=== PATIENT | female | born 1970 | race Caucasian/White ===

== ENCOUNTER 2017-03-23 15:49 | Emergency (ER) | payer BC ==
[~2017-03-23] VITALS: Ht 157.5 cm; Wt 99.8 kg
[2017-03-23] MEDS ORDERED: IBUPROFEN 600600 M1 PO (16:16)
[2017-03-23] MEDS ORDERED: KEFLEX500 M1 PO (16:16)
== END 2017-03-23 16:45 | disposition home or self-care (01) ==
LOC: ER 15:49
DX: S51.812A Laceration without foreign body of left forearm, initial encounter (principal); W45.8XXA Other foreign body or object entering through skin, initial encounter; Y93.89 Activity, other specified; Y92.89 Other specified places as the place of occurrence of the external cause; Y99.8 Other external cause status

== ENCOUNTER 2018-12-26 22:32 | Emergency (ER) | payer OTHER ==
[~2018-12-26] VITALS: Ht 154.9 cm; Wt 83.5 kg
[~2018-12-26 22:32] MED LIST: IBUPROFEN 600600 M1 PO; KEFLEX500 M1 PO
[2018-12-26] MEDS ORDERED: PROTONIX40 M1 PO (23:10)
[2018-12-26] MEDS ORDERED: ADDERALL 10 MG10 MG PO (23:10)
[2018-12-26] MEDS ORDERED: HYOSCYAMINE0.125 MG PO (23:11)
[2018-12-26] MEDS ORDERED: EFFEXOR XR150 MG PO (23:11)
[2018-12-26] MEDS ORDERED: NEURONTIN 300M300 M2 PO (23:12)
[2018-12-26] MEDS ORDERED: AMITRIPTYLINE H25 M3 PO (23:13)
[2018-12-26] MEDS ORDERED: SPIRONOLACTONE100 M1 PO (23:14)
[2018-12-26] MEDS ORDERED: ONDANSETRON HCL4 M2 PO (23:14)
[2018-12-26] MEDS ORDERED: PROAIR HFA8.5 GM INH (23:15)
[2018-12-27 00:32] LABS: ABSOLUTE NEUTROPHILS 7.3 thou/uL (1.4-8.2); BASOPHILS 0.6 % (0.0-2.0); EOSINOPHILS 3.3 % (0.0-3.0); HEMATOCRIT 33.4 % (37.0-47.0); HEMOGLOBIN 11.1 gm/dL (12.0-15.0); LYMPHOCYTES 18.2 % (24.0-44.0); MCH 30.5 pg (26.0-34.0); MCHC 33.2 g/dL (28.0-37.0); MCV 91.7 fL (80.0-100.0); MONOCYTES 6.9 % (1.0-8.0); PLATELET COUNT 283 thou/uL (150-400); RBC 3.64 mil/uL (4.20-5.00); RDW 16.6 % (10.5-14.5); WBC 10.3 thou/uL (4.0-11.0)
[2018-12-27 00:41] LABS: CALCIUM 8.7 mg/dL (8.5-10.1); CREATININE 0.9 mg/dL (0.6-1.0); POTASSIUM 4.3 mmol/L (3.5-5.1)
[2018-12-27 01:23] LABS: AMP/METHAMP POSITIVE (Negative); BARBITURATES Negative (Negative); BENZODIAZEPINES Negative (Negative); COCAINE Negative (Negative); METHADONE Negative (Negative); OPIATES Negative (Negative); PCP Negative (Negative)
[2018-12-27] MEDS ORDERED: MOBIC15 MG PO (02:02)
[2018-12-27 02:20] VITALS: BP 114/63
== END 2018-12-27 02:20 | disposition home or self-care (01) ==
LOC: ER 22:32
PROVIDERS: Emergency Medicine
DX: S16.1XXA Strain of muscle, fascia and tendon at neck level, initial encounter (principal); S80.02XA Contusion of left knee, initial encounter; R40.0 Somnolence; R19.7 Diarrhea, unspecified; R11.10 Vomiting, unspecified; N80.9 Endometriosis, unspecified; Z98.890 Other specified postprocedural states; Z90.49 Acquired absence of other specified parts of digestive tract; Z88.8 Allergy status to other drugs, medicaments and biological substances; V89.2XXA Person injured in unspecified motor-vehicle accident, traffic, initial encounter; Y93.89 Activity, other specified; Y92.89 Other specified places as the place of occurrence of the external cause; Y99.8 Other external cause status

== ENCOUNTER → 2019-08-13 | Outpatient (CLI) | payer OTHER ==
[~2019-08-13] MED LIST changes: +ADDERALL 10 MG10 MG PO; +AMITRIPTYLINE H25 M3 PO; +EFFEXOR XR150 MG PO; +HYOSCYAMINE0.125 MG PO; +MOBIC15 MG PO; +NEURONTIN 300M300 M2 PO; +ONDANSETRON HCL4 M2 PO; +PROAIR HFA8.5 GM INH; +PROTONIX40 M1 PO; +SPIRONOLACTONE100 M1 PO
== END ==
LOC: LAB 09:15
PROVIDERS: ATTEND Anesthesiology
DX: Z01.812 Encounter for preprocedural laboratory examination (principal); Z11.59 Encounter for screening for other viral diseases